=== PATIENT | male | born 1970 | race African-American/Black ===

== ENCOUNTER 2018-12-17 12:35 | Emergency (ER) | payer OTHER ==
[2018-12-17 12:50] VITALS: BMI 31.4
[2018-12-17 13:17] LABS: BASO % 1.3 % (0-2.0); EOS % 2.9 % (0-4.5); HEMATOCRIT 45.9 % (35.4-49); HEMOGLOBIN 15.4 GM/dL (11.7-16.9); LYMPH % 31.6 % (8-40); MCH 29.4 pg (25.7-33.7); MCHC 33.5 g/dl (32.0-35.9); MEAN CELL VOLUME 87.6 fl (80-96); MEAN PLT VOLUME 9.3 fl (7.5-11.1); MONO % 8.5 % (3.8-10.2); NEUT % 55.7 % (42.8-82.8); PLATELET COUNT 254 K/MM3 (134-434); RBC 5.24 M/mm3 (4.00-5.60); RDW 13.1 % (11.9-15.9); WHITE BLOOD COUNT 4.9 K/mm3 (4.0-10.0)
--- NOTE | 2018-12-17 13:22 | PDOC ---
History of Present Illness - General Chief Complaint: Chest Pain Stated Complaint: CHEST PAIN Time Seen by Provider: 12/17/18 13:21 - History of Present Illness Initial Comments: 12/17/18 14:12 48 year old man with a history of depression on wellbutrin and zoloft who presents with 30 minute episode of mid chest burning associated with lightheadedness, shallow breathing and tingling in the hands and feet. The chest pain travelled to the L anterior axillary line and slowly improved but became dull and still present at bedside. The patient denies any recent travel or illness, denies sweating or nausea. She has no other complaints. ROS GENERAL/CONSTITUTIONAL: No fever or chills. No weakness. HEAD, EYES, EARS, NOSE AND THROAT: No change in vision. No ear pain or discharge. No sore throat. CARDIOVASCULAR: + chest pain or shortness of breath RESPIRATORY: No cough, wheezing, or hemoptysis. GASTROINTESTINAL: No nausea, vomiting, diarrhea or constipation. GENITOURINARY: No dysuria, frequency, or change in urination. MUSCULOSKELETAL: No joint or muscle swelling or pain. No neck or back pain. SKIN: No rash PE GENERAL: Awake, alert, and fully oriented, in no acute distress HEAD: No signs of trauma, normocephalic, atraumatic EYES: EOMI, sclera anicteric, conjunctiva clear ENT: oropharynx clear without exudates. Moist mucosa NECK: Normal ROM, supple LUNGS: No distress, speaks full sentences, clear to auscultation bilaterally HEART: Regular rate and rhythm, normal S1 and S2, no murmurs, rubs or gallops, peripheral pulses normal and equal bilaterally. ABDOMEN: Soft, nontender No guarding, no rebound. No masses EXTREMITIES : Normal inspection, Normal range of motion, no edema. No clubbing or cyanosis. NEUROLOGICAL: Cranial nerves II through XII grossly intact. Normal speech, no focal sensorimotor deficits SKIN: Warm, Dry, normal turgor, no rashes or lesions noted MDM DDX including but not limited to: r/o acs consider msk vs gerd ED Course: labs wnl Anh Pina, PGY2 Emergency Medicine 12/17/18 14:19 Past History - Past Medical History Allergies/Adverse Reactions: Allergies Allergy/AdvReac Type Severity Reaction Status Date / Time No Known Allergies Allergy Verified 12/17/18 12:50 Home Medications: Ambulatory Orders NK [No Known Home Medication] 12/17/18 COPD: No - Psycho Social/Smoking Cessation Hx Smoking History: Never smoked Have you smoked in the past 12 months: No Information on smoking cessation initiated: No Hx Alcohol Use: No Drug/Substance Use Hx: No *Physical Exam - Vital Signs Last Vital Signs Temp Pulse Resp BP Pulse Ox 97.8 F 78 16 135/84 100 12/17/18 12:36 12/17/18 12:36 12/17/18 12:36 12/17/18 12:36 12/17/18 12:36 ED Treatment Course - LABORATORY CBC & Chemistry Diagram: 12/17/18 13:05 12/17/18 13:05 - ADDITIONAL ORDERS Additional order review: 12/17/18 13:05 RBC 5.24 MCV 87.6 MCHC 33.5 RDW 13.1 MPV 9.3 Neutrophils % 55.7 Lymphocytes % 31.6 Monocytes % 8.5 Eosinophils % 2.9 Basophils % 1.3 Discharge - Discharge Information Problems reviewed: Yes Clinical Impression/Diagnosis: Atypical chest pain Condition: Stable Disposition: HOME - Admission No - Follow up/Referral Referrals: Edvin Catalan MD [Primary Care Provider] - Jorgito Lauren MD [Staff Physician] - - Patient Discharge Instructions Patient Printed Discharge Instructions: DI for Atypical Chest Pain Additional Instructions: You were seen in the ED for complaints of chest pain Your labwork and imaging were unremarkable and you had improvement of symptoms You have a referral for Cardiology and should follow up within 1 week. Return to the ED if you have worsening chest pain, shortness of breath, nausea, vomiting, sweating or any other concerning symptoms. - Post Discharge Activity
[2018-12-17 13:44] LABS: ALBUMIN 4.1 g/dl (3.4-5.0); BILIRUBIN,TOTAL 0.4 mg/dL (0.2-1); BLOOD UREA NITROGEN 16.5 mg/dL (7-18); CALCIUM 9.1 mg/dL (8.5-10.1); TOT PROT 6.8 g/dl (6.4-8.2)
[2018-12-17 13:47] LABS: N-TERMINAL BNP 18.8 pg/ml (5-125)
[2018-12-17] MEDS ORDERED: ACETAMINOPHEN 1000 MG/100 ML VIAL (NON FORMULARY) IVPB ONE (14:17)
[2018-12-17] MEDS ORDERED: MAG HYDROX/AL HYDROX/SIMETH -MYLANTA- ORAL SUSPENSION PO ONE (14:17)
[2018-12-17] MEDS ORDERED: FAMOTIDINE 20 MG/50 ML IVPB 20 MG/50 ML MG IVPB ONE ×2 (14:17→14:20)
[2018-12-17] MEDS ORDERED: ACETAMINOPHEN INJECTION 100 ML IVPB ONE (14:20)
[2018-12-17] MEDS ORDERED: MAG HYDROX/AL HYDROX/SIMETH 30 ML UNIT-DOSE CUP ONE (14:20)
[2018-12-17 14:25] LABS: INR 0.92 (0.83-1.09); PROTHROMBIN TIME (PATIENT) 10.8 SEC (9.7-13.0)
[2018-12-17 14:28] LABS: ACTIVATED PTT 39.5 SECONDS (25.2-36.5)
[2018-12-17] MEDS ORDERED: SODIUM CHLORIDE 1,000 ML IV STA (14:31)
--- NOTE | 2018-12-17 14:38 | PDOC ---
Attending Attestation - Resident Resident Name: JohnleathaAnh - ED Attending Attestation I have performed the following: I have examined & evaluated the patient, The case was reviewed & discussed with the resident, I agree w/resident's findings & plan, Exceptions are as noted - HPI HPI: 12/17/18 14:44 48 M with no significant PMH presents to ED with chest pain. Pt states that approx 2 hours ago, he began to experience L sided chest pain. The pain did not radiate to his arm or jaw. Denies any tearing chest pain. He endorses mild SOB associated with it. The pain has gradually improved since onset. It was not exertional or pleuritic. Pt denies any leg swelling. No recent travel/ immobilization. Denies FH of [place]. Denies any smoking history. - Physicial Exam PE: 12/17/18 14:49 "GENERAL: Awake, alert, and fully oriented, in no acute distress. HEAD: No signs of trauma EYES: PERRLA, EOMI, sclera anicteric, conjunctiva clear ENT: Auricles normal inspection, hearing grossly normal, nares patent, oropharynx clear without exudates. Moist mucosa NECK: Nontender, no stepoffs, Normal ROM, supple, no lymphadenopathy, JVD, or masses LUNGS: Breath sounds equal, clear to auscultation bilaterally. No wheezes, and no crackles HEART: Regular rate and rhythm, normal S1 and S2, no murmurs, rubs or gallops ABDOMEN: Soft, nontender, normoactive bowel sounds. No guarding, no rebound. No masses EXTREMITIES: Normal range of motion, no edema. No clubbing or cyanosis. No cords, erythema, or tenderness NEUROLOGICAL: Cranial nerves II through XII intact. 5/5 strength and sensation in all extremities, Normal speech, normal gait, normal cerebellar function SKIN: Warm, Dry, normal turgor, no rashes or lesions noted. - Medical Decision Making 12/17/18 14:49 48 M with L sided chest pain. EKG nonischemic. Will r/o ACS with serial trops. No PE risk factors. PERC score 0. Possible gastritis/GERD. - Labs, trop - CXR - GI cocktail 12/17/18 17:05 Labs wnl, trop negative x2 CXR clear Pt reassessed - feels better s/p GI cocktail Will DC with cards f/u Pt is well appearing, with normal vitals. Clinically stable for DC at this time. I discussed the physical exam findings, ancillary test results and final diagnoses with the patient. I answered all of the patient's questions. The patient was satisfied with the care received and felt comfortable with the discharge plan and treatment plan. The patient agrees to follow up with the primary care physician within 24-72 hours. Heart Score/ECG Review - History History: Moderately suspicious - Electrocardiogram EKG: Normal - Age Age: 45-65 - Risk Factors Based on the list above the patient has:: No risk factors known - Troponin Troponin: </= normal limit - Score Heart Score - Total: 2 - ECG Impressions Comment:: 12/17/18 14:50 NSR, no SHAYAN/STDs, no TWIs, axis wnl intervals wnl, rate 62
--- NOTE | 2018-12-17 15:50 | EKG ---
Test Reason : Blood Pressure : / mmHG Vent. Rate : 062 BPM Atrial Rate : 062 BPM P-R Int : 164 ms QRS Dur : 080 ms QT Int : 406 ms P-R-T Axes : 073 002 022 degrees QTc Int : 412 ms NORMAL SINUS RHYTHM NORMAL ECG NO PREVIOUS ECGS AVAILABLE Confirmed by VITO MELO MD ([id number]) on 12/17/2018 3:50:10 PM Referred By: Confirmed By:VITO MELO MD
[2018-12-17 16:18] LABS: PH,URINE 8.5 (5.0-8.0); URINE APPEARANCE CLEAR; URINE BILIRUBIN NEGATIVE (NEGATIVE); URINE COLOR YELLOW; URINE GLUCOSE (UA) NEGATIVE (NEGATIVE); URINE KETONE NEGATIVE (NEGATIVE); URINE LEUK ESTERASE NEGATIVE (NEGATIVE); URINE NITRITE NEGATIVE (NEGATIVE); URINE PROTEIN NEGATIVE (NEGATIVE)
[2018-12-17 16:58] VITALS: BP 135/64; PULSE 71; TEMP 98
== END 2018-12-17 17:19 | disposition home or self-care (01) ==
LOC: JER 12:35
PROC: 3E0337Z Introduction of Electrolytic and Water Balance Substance into Peripheral Vein, Percutaneous Approach (ICD-10-PCS; principal; 2018-12-17)
PROC: 3E033GC Introduction of Other Therapeutic Substance into Peripheral Vein, Percutaneous Approach (ICD-10-PCS; 2018-12-17)
PROC: 3E033NZ Introduction of Analgesics, Hypnotics, Sedatives into Peripheral Vein, Percutaneous Approach (ICD-10-PCS; 2018-12-17)
DX: R07.9 Chest pain, unspecified (principal); F32.9 Major depressive disorder, single episode, unspecified
CPT/HCPCS: 36415; 71045-TC-FY; 80053; 81003; 82550; 83880; 84484; 85025; 85610; 85730; 87086; 93005; 93010; 99284-25; J0131; J7030